=== PATIENT | female | born 1990 | race African-American/Black ===

== ENCOUNTER 2024-02-10 06:11 | Emergency (ER) | payer SELFPAY ==
[~2024-02-10] VITALS: Ht 167.6 cm; Wt 118.6 kg
[2024-02-10 06:16] VITALS: O2SAT 98
[2024-02-10 06:51] LABS: CHLORIDE 109 mEq/L (98-107); POTASSIUM 3.4 mEq/L (3.5-5.1); SODIUM 140 mEq/L (136-145)
[2024-02-10 06:52] LABS: CARBON DIOXIDE 25 mEq/L (21-32)
[2024-02-10 06:53] LABS: CALCIUM 8.9 mg/dL (8.7-10.4)
[2024-02-10 06:57] LABS: GLUCOSE 99 mg/dL (70-105); UREA NITROGEN BLOOD 9 mg/dL (9-23)
[2024-02-10 06:59] LABS: B-HCG QUANTITATIVE 17 mIU/mL (<3); BASOPHILS % 0.3 % (0.0-2.0); EOSINOPHILS % 2.3 % (0.0-5.0); HEMOGLOBIN. 10.9 g/dL (12.0-16.0); LYMPHOCYTES % 25.5 % (20.0-50.0); MEAN CORPUSCULAR HEMOGLOBIN 25.7 pg (28.0-32.0); MEAN CORPUSCULAR HGB CONC 32.1 g/dL (31.0-37.0); MEAN CORPUSCULAR VOLUME 80.1 fL (81.0-99.0); MEAN PLATELET VOLUME 8.5 fl (7.4-10.4); NEUTROPHILS % 61.9 % (40.0-76.0); PLATELET 352 x1000/uL (130-400); RED BLOOD CELL COUNT 4.25 mill/uL (4.2-5.4); RED CELL DISTRIBUTION WIDTH 16.6 % (11.6-14.6)
[2024-02-10] MEDS: ACETAMINOPHEN 325MG TABLET PO ONE (08:58)
[2024-02-10 09:08] LABS: CLARITY URINE CLOUDY (CLEAR); COLOR URINE YELLOW (YELLOW); GLUCOSE URINE NEGATIVE (NEGATIVE); KETONES URINE 1+ (NEGATIVE); LEUKOCYTE ESTERASE URINE 1+ (NEGATIVE); NITRITE URINE NEGATIVE (NEGATIVE); OCCULT BLOOD URINE 3+ (NEGATIVE); PH URINE 5.5 (4.5-8.0); PROTEIN URINE 1+ (NEGATIVE); SPECIFIC GRAVITY URINE 1.015 (1.005-1.030); UROBILINOGEN URINE 0.2 E.U./dL (0.2-1.0)
[2024-02-10] MEDS ORDERED: PREN1COM12 MT (09:27)
[2024-02-10] MEDS ORDERED: CEPH500C2 MT (09:28)
[2024-02-10] MEDS ORDERED: TOPUD PO (09:28)
[2024-02-10 09:29] VITALS: BP 148/76; PULSE 84; RESP 18; TEMP 37.00296; O2SAT 98
[2024-02-10 09:31] LABS: SQUAMOUS EPITHELIAL CELL URINE 1+ /lpf (RARE/1+)
[2024-02-10 09:32] LABS: RBC URINE TNTC /hpf (0-2)
[2024-02-10 09:33] LABS: BACTERIA URINE TRACE; YEAST URINE NONE SEEN
== END 2024-02-10 09:39 | disposition home or self-care (01) ==
LOC: ER 06:37
DX: O23.41 Unspecified infection of urinary tract in pregnancy, first trimester (principal); N39.0 Urinary tract infection, site not specified; Z3A.01 Less than 8 weeks gestation of pregnancy
CPT/HCPCS: 36415; 76801; 80048; 81003; 81025; 84702; 85025; 86850; 86900; 99284